=== PATIENT | female | born 1985 | race Caucasian/White ===

== ENCOUNTER 2018-12-12 15:06 | Inpatient (IN) | payer BC ==
[~2018-12-12] VITALS: Ht 167.6 cm; Wt 54.1 kg
--- NOTE | 2018-12-12 15:30 | NUR ---
ED Nurse Note: Pt came in from home due to bilateral forearm redness, edema, dried discharge from 2 openning spots (1 on L arm - white pus noted, 1 on R arm - clear discharge noted). Pt noticed symptoms since yesterday after using IV meth yesterday morning. Pain 10/10 at this time. Pt is not sure if she is up-to-date with Tetanus shot. HR >110 at this time, Oral temp 100.6F upon arrival, ERMD made aware. AOOx4, other vital signs stable. Will cont to monitor.
--- NOTE | 2018-12-12 15:31 | NUR ---
ED Nurse Note: Foul odor noted.
[2018-12-12] MEDS ORDERED: Morphine Sulfate 4mg/ml Inj (IV USE ONLY) IVP ONE (15:45)
[2018-12-12] MEDS ORDERED: Neosporin Oint Ud Pkt TOPIC ONE (15:45)
[2018-12-12] MEDS ORDERED: Tetanus/Diptheria/Pertussis IM ONE (15:45)
[2018-12-12] MEDS ORDERED: Piperacillin/Tazobactam 3.375 GM in NS 110 ML IVPB ONE (15:45)
[2018-12-12] MEDS ORDERED: Vancomycin 1 GM in NS 275 ML IV ONE (15:45)
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
[2018-12-12 15:50] VITALS: BP 116/60
[2018-12-12 15:54] LABS: HEMATOCRIT 36.8 % (37.0-47.0); HEMOGLOBIN 12.3 G/DL (12.0-16.0); MEAN CORPUSCULAR VOLUME 83 FL (80-99); PLATELET COUNT 335 K/UL (150-450); RED BLOOD COUNT 4.41 M/UL (4.20-5.40); RED CELL DISTRIBUTION WIDTH 12.1 % (11.6-14.8)
[2018-12-12 15:58] LABS: WHITE BLOOD COUNT 23.9 K/UL (4.8-10.8)
[2018-12-12 16:09] LABS: ANION GAP 9 mmol/L (5-15); BLOOD UREA NITROGEN 11 mg/dL (7-18); CALCIUM 8.3 MG/DL (8.5-10.1); CARBON DIOXIDE 25 MMOL/L (21-32); CHLORIDE 100 MMOL/L (98-107); CREATININE 0.9 MG/DL (0.55-1.30); INR 1.2 (0.9-1.1); POTASSIUM 3.6 MMOL/L (3.5-5.1); SODIUM 134 MMOL/L (136-145)
[2018-12-12] MEDS ORDERED: NKM (16:16)
[2018-12-12 16:23] LABS: ALANINE AMINOTRANSFERASE 36 U/L (12-78); ALBUMIN 2.7 G/DL (3.4-5.0); ALBUMIN/GLOBULIN RATIO 0.8 (1.0-2.7); ALKALINE PHOSPHATASE 64 U/L (46-116); ASPARTATE AMINO TRANSFERASE 25 U/L (15-37); BILIRUBIN,TOTAL 0.7 MG/DL (0.2-1.0); CKMB 1.6 NG/ML (0.0-3.6); CREATINE KINASE 116 U/L (26-308); PHOSPHORUS 2.5 MG/DL (2.5-4.9)
--- NOTE | 2018-12-12 16:26 | NUR ---
ED Nurse Note: Pt stated pain is 6/10 at this time, tolerated well with medications, no adverse reactions noted or reported.
--- NOTE | 2018-12-12 16:47 | NUR ---
ED Nurse Note: RN was instructed to draw 2nd Lactic Acid after order of NS 1L 800ml/hour. Will carry out order as instructed.
--- NOTE | 2018-12-12 16:56 | NUR ---
ED Nurse Note: Independence and juice given at bedside. Dr Peña is ok with patient eat/drink.
--- NOTE | 2018-12-12 17:05 | NUR ---
ED Nurse Note: Mother - Unique faustin contact information: [phone]
--- NOTE | 2018-12-12 17:10 | NUR ---
ED Nurse Note: Oral temp 99.5F at this time, HR 97. Pt tolerated 100% sandwich and juice. No sign of acute distress.
[2018-12-12 17:34] VITALS: BP 114/42
--- NOTE | 2018-12-12 17:46 | NUR ---
ED Nurse Note: Report given to ROM Sorenson at 3 [facility]. Pt to be transferred to room [facility] on [facility] per protocol. All belongings go with pt to room.
[2018-12-12] MEDS ORDERED: Milk of Magnesia 30ml Ud ORAL PRN (18:00)
[2018-12-12] MEDS ORDERED: LORazepam 1mg tab ORAL PRN (18:00)
[2018-12-12 18:24] VITALS: BP 97/54
--- NOTE | 2018-12-12 18:25 | NUR ---
NURSE NOTES: RECEIVED PATIENT A/A/OX4, ABLE TO MAKE THINGS KNOWN. V/S TAKEN AND RECORDED. PERSONAL BELONGINGS REVIEWED AND NOTED. KEPT BILATERAL ARM ELEVATED WITH PILLOWS. WARM TO TOUCH AND SWOLLEN. OPEN WOUND COVERED WITH OPTIFOAM. EATING DINNER WE SPEAK. NO ACUTE RESP DISTRESS NOTED. KEPT BED IN THE LOWEST POSITION. SIDERAILS ARE UP X3. BED ALARM ON AND LOCKED @ ALL TIMES. WILL CONT TO MONITOR.
--- NOTE | 2018-12-12 19:00 | NUR ---
NURSE NOTES: DARIANAD present from [facility]. TATIANA #[id number]; CHRISTINE #[id number] UNIT. GATHERED INFO ABOUT 'S NAME MEDICAL RECORD # DX AND ROOM NUMBER. JYOTSNA GUAN MADE AWARE.
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
--- NOTE | 2018-12-12 19:13 | NUR ---
HAND-OFF: Report given to
[2018-12-12 20:00] VITALS: BP 139/74
[2018-12-12] MEDS: Piperacillin/Tazobactam 3.375 GM in NS 110 ML IVPB SCH (21:11)
[2018-12-12] MEDS ORDERED: Mylanta II UD 30ml ORAL PRN (22:00)
[2018-12-13] VITALS: BP 102/64
[2018-12-13 04:00] VITALS: BP 124/77
[2018-12-13] MEDS: Piperacillin/Tazobactam 3.375 GM in NS 110 ML IVPB SCH ×3 (06:27→22:10)
--- NOTE | 2018-12-13 07:30 | NUR ---
NURSE NOTES: Received report from ROM Dunn. Rounding done with outgoing nurse. Pt is asleep. Rt AC IV access is patent. TabletKiosksyn is running at this time. Bed in lowest position, call light within reach. Will continue to monitor.
[2018-12-13 08:00] VITALS: BP 135/69
--- NOTE | 2018-12-13 11:05 | NUR ---
*-* NO INSURANCE INFORMATION IN THE BAR UNABLE TO SEND CLINICALS AND REVIEWS *-*
--- NOTE | 2018-12-13 11:30 | NUR ---
NURSE NOTES: Dr. Ibarra called the unit and gave the update for pt including Mg 1.4. said he will come to see pt. No new order.
[2018-12-13 12:00] VITALS: BP 144/78
--- NOTE | 2018-12-13 14:32 | NUR ---
[employer] Initial Review 32 Y/O Female walked in to ED CC: Skin Rash/Abscess after using Meth SI: Cellulitis BP:124/79 HR:125 RR:18 02 Sat:100% on RA T:100.6 WBC:23.9 ESR:32 Magnesium:1.4 IS: Vanco IVx1 Zosyn IVx1 Morphine IVx1 Zofran IVx1 TDAP IMx1 Neosporin Topicalx1 NS Bolusx1 Patient admitted to M/S 12/12/18 @ 1804 M/S Status DCP: Patient to be discharged home once medically stable
[2018-12-13 16:00] VITALS: BP 129/61
--- NOTE | 2018-12-13 16:05 | Diagnostic Imaging Report ---
Indication: Chest pain Technique: One view of the chest Comparison: none Findings: Lungs and pleural spaces are clear. Heart size is normal. Impression: No acute process
--- NOTE | 2018-12-13 16:05 | Diagnostic Imaging Report ---
Clinical Indication:Right wrist pain Technique: 3 views of the right wrist Comparison: None Findings: No acute fractures. No dislocations. The joint spaces are preserved Impression: Negative
--- NOTE | 2018-12-13 17:50 | NUR ---
NURSE NOTES: Dr. Ibarra came to see pt. Dr. Ibarra was notified regarding Mg 1.4. No new order.
--- NOTE | 2018-12-13 19:08 | NUR ---
HAND-OFF: Report given to ROM Dunn. Pt is stable.
--- NOTE | 2018-12-13 19:10 | NUR ---
NURSE NOTES: Report taken from ROM Montelongo. Patient is awake and seated in bed, A&Ox4. No signs of distress on room air. Having pain through bilateral UE, central to wound sites, 08/16. Sites covered with island dressings, intact, change PRN. IV site c/d/i and patent, no fluids running per MD. Bed in lowest position, call light within reach.
[2018-12-13 20:00] VITALS: BP 147/87
[2018-12-13] MEDS: Venlafaxine XR 75mg cap ORAL SCH (20:04)
[2018-12-13] MEDS ORDERED: Vancomycin 1.25gm/NS Premix IVPB ONE (20:30)
[2018-12-13] MEDS: QUEtiapine 200mg tab ORAL SCH (21:05)
[2018-12-14 04:00] VITALS: BP 140/84
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
[2018-12-14] MEDS: Piperacillin/Tazobactam 3.375 GM in NS 110 ML IVPB SCH (05:50)
--- NOTE | 2018-12-14 07:22 | NUR ---
HAND-OFF: Report given to ROM Jesus. Patient is awake and stable.
--- NOTE | 2018-12-14 07:58 | NUR ---
NURSE NOTES: Upon rounds pt IV site extremely swollen. Difficult to differentiate where swelling from cellulitis begins , and swelling from infiltrated IV. Will follow up with Dr Ibarra. Pt is slightly sedated, closes eyes when she speaks and her head sways. Pt rubbing on her lips stating her mouth is dry. Per report of charge nurse mental baseline has improved from yesterday. Current plan will be followed to include follw with Dr Ibarra for possible change of route of antibiotics.
--- NOTE | 2018-12-14 08:46 | NUR ---
NURSE NOTES: Dr Ibarra here to see pt both arms are swollen pt stated " They may be nothing in my arms" gave orders for picc line, for prolonged IV use.
--- NOTE | 2018-12-14 08:49 | General Progress Note ---
Assessment/Plan Problem List: (1) Amphetamine abuse ICD Codes: F15.10 - Other stimulant abuse, uncomplicated SNOMED: 71140742 (2) Cellulitis ICD Codes: L03.90 - Cellulitis, unspecified SNOMED: 369466225 Qualifiers: Qualified Codes: L03.119 - Cellulitis of unspecified part of limb (3) Staph aureus infection ICD Codes: A49.01 - Methicillin susceptible Staphylococcus aureus infection, unspecified site SNOMED: 324538617 (4) Depression ICD Codes: F32.9 - Major depressive disorder, single episode, unspecified SNOMED: 81019593 Assessment/Plan: picc, vanco, SW eval for drug rehab, psych eval Subjective Constitutional: Reports: weakness HEENT: Reports: no symptoms Cardiovascular: Reports: no symptoms Respiratory: Reports: no symptoms Gastrointestinal/Abdominal: Reports: no symptoms Genitourinary: Reports: no symptoms Neurologic/Psychiatric: Reports: no symptoms Endocrine: Reports: no symptoms Hematologic/Lymphatic: Reports: no symptoms Allergies: Coded Allergies: No Known Allergies (Unverified , 12/12/18) Subjective arm pain and swell Objective Last 24 Hour Vital Signs Date Time Temp Pulse Resp B/P (MAP) Pulse Ox O2 Delivery O2 Flow Rate FiO2 12/14/18 04:00 98.4 87 18 140/84 (102) 97 12/13/18 21:00 Room Air 12/13/18 20:00 97.9 89 18 147/87 (107) 99 12/13/18 16:00 97.4 92 20 129/61 (83) 95 12/13/18 12:00 98.0 89 18 144/78 (100) 99 12/13/18 09:00 Room Air Intake and Output 12/13/18 12/14/18 19:00 07:00 Intake Total 220.0 ml 750 ml Balance 220.0 ml 750 ml Intake Oral 750 ml IV Total 220.0 ml # Voids 2 2 Height (Feet): 5 Height (Inches): 6.00 Weight (Pounds): 130 General Appearance: no apparent distress, alert EENT: normal ENT inspection Neck: normal alignment Cardiovascular: normal rate Respiratory/Chest: lungs clear Abdomen: non tender, soft Edema: mild edema Neurologic: vice president supply chain II-XII grossly normal Skin: other - abscesses and cellulitis both arms Yohannes Ibarra MD Dec 14, 2018 08:49
[2018-12-14] MEDS ORDERED: Heparin1,000 units/500ml Premix(Conc:2 units/ml) IV PRN (09:00)
[2018-12-14] MEDS ORDERED: Lidocaine 1% Plain 30 ml INJ PRN (09:00)
[2018-12-14] MEDS: Vancomycin 1.25gm/NS Premix IVPB SCH ×2 (09:00→21:00)
[2018-12-14] MEDS: Venlafaxine XR 75mg cap ORAL SCH (09:34)
[2018-12-14] MEDS: FLUoxetine 10mg cap ORAL SCH (09:35)
[2018-12-14] MEDS ORDERED: NS 275ml ONE (10:27)
[2018-12-14] MEDS ORDERED: Tubing IV Secondary IV ONE (10:27)
--- NOTE | 2018-12-14 11:05 | NUR ---
NURSE NOTES: Pt does not have working line, awaiting picc line insertion
--- NOTE | 2018-12-14 11:40 | NUR ---
NURSE NOTES: Unable to give antibiotics which were due. Pt does not have IV acces. Will follow up with pharmacy for change in time for Vancomycin. Here earlier in shift , is aware that pt does not have a line. Lab recently called to report MRSA positive to rt wrist. " Okay she is already on Vancomycin" NNO
[2018-12-14 12:00] VITALS: BP 125/69
--- NOTE | 2018-12-14 12:31 | NUR ---
NURSE NOTES: Pt appears altered Dr lua . Pt has a hx of drug abuse.
--- NOTE | 2018-12-14 13:05 | NUR ---
CASE MANAGEMENT:REVIEW 12/14/18 SI: BUE ABSCESSES/CELLULITIS. MRSA INFECTION AMPHETAMINE ABUSE 98.4 87 18 140/84 97% ON RA IS: IV VANCOMYCIN Q12 PROZAC PO QD SEROQUEL PO QHS : MED/SURG STATUS 3 EAST PLAN: INPATIENT DRUG REHAB
--- NOTE | 2018-12-14 14:14 | NUR ---
*-* INSURANCE *-* ALL CLINICALS AND REVIEWS HAVE BEEN FAXED TO: [facility] REF#[id number] NO CM ASSIGNED YET #[phone] FAX#[phone] REVIEWS/CLINICALS
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
[2018-12-14 16:00] VITALS: BP 141/75
--- NOTE | 2018-12-14 16:00 | NUR ---
NURSE NOTES: Upon this writing radiology did not metal pickling equipment operator pt for picc line placement . Registered Pharmacist attempted to insert a line but refused use of tourniquet, greeting card writer obtained backflow but was unable to advance catheter. 2 attempts made. . Per instruction of pt " I know my veins dont go deep" Catheter retracted as requested site began to bleed. " I guess you had it"
--- NOTE | 2018-12-14 19:20 | NUR ---
NURSE NOTES: Report taken from ROM Jesus. Patient is asleep and in bed, arousable by name and touch. Patient seems sedated, day shift endorsed finding used drugs in patient belongings. A&Ox4. No signs of distress on room air. No IV MD yamile aware, order for PICC placed. Biateral UE swollen and warm, open wounds on lt wrist and rt FA, change dressing PRN. Wound culture complete, patient has MRSA, will transfer patient to , patient aware. Bed in lowest position, call light within reach.
--- NOTE | 2018-12-14 19:23 | NUR ---
HAND-OFF: Report given to Oncoming nurse made aware, that picc line was not inserted, pt requested that iv attempted to be inserted without a turniquette. Endorsed to oncoming nurse to attempt and call Dr Ibarra to inform him that picc line was not inserted.
[2018-12-14 20:00] VITALS: BP 144/77
[2018-12-14] MEDS ORDERED: Dyna-Hex 2% Top Sol 2oz TOPIC SCH (20:00)
--- NOTE | 2018-12-14 20:00 | NUR ---
NURSE NOTES: No IV access. Order for PICC placed prior to shift. Radiology did not come and put line in patient. MD made aware (Dr. Whittington), no further antibiotic orders placed until PICC inserted.
[2018-12-14] MEDS: QUEtiapine 200mg tab ORAL SCH ×2 (21:45→22:20)
--- NOTE | 2018-12-15 01:24 | NUR ---
NURSE NOTES: RECEIVED PT FROM ROM ESQUEDA. PT IS AWAKE, AAOX4, ON ROOM AIR, NO ACUTE DISTRESS NOTED. WOUND DRESSINGS ON BILATERAL ARMS ARE INTACT AND DRY. PT HAS NO IV ACCESS, MD AWARE. BED IS LOCKED AND LOW, BED ALARMS ACTIVE, SIDE RAILS UP X2 AND CALL LIGHT IS WITHIN REACH. WILL CONTINUE TO MONITOR.
--- NOTE | 2018-12-15 07:30 | NUR ---
HAND-OFF: Report given to ORM CHICAS.
--- NOTE | 2018-12-15 07:59 | NUR ---
NURSE NOTES: Received pt in bed, AAO x 4. Room air. No c/o of pain/distress. No IV access. Will have PICC line placement today. Side rails x 2. Bed in the lowest and locked. Call light within reach. Will continue to monitor
[2018-12-15 08:00] VITALS: BP 136/97
[2018-12-15] MEDS: Venlafaxine XR 75mg cap ORAL SCH (08:08)
[2018-12-15] MEDS: Vancomycin 1.25gm/NS Premix IVPB SCH (08:08)
[2018-12-15] MEDS: FLUoxetine 10mg cap ORAL SCH (08:08)
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
--- NOTE | 2018-12-15 11:52 | CDS Physician Query ---
Clarification is required for compliance, coding accuracy, and to reflect severity of illness for this patient. Dear Dr. Yohannes Ibarra Date: 12/15/2018 CDS name: Skylar Blanco Clinical Documentation States: ED note:Patient presents with worsening infections in her forearms and hands with swelling. She injects methamphetamine subcutaneously and sometimes IV. Yesterday she felt nauseated and felt fevers and chills...Sepsis Progress note 12/14: Cellulitis...Staph auerus infection...picc,vanco Vitals on admission: Tmax 100.6, IN 125, RR 21, WBC 23.9 A diagnosis of Sepsis was made in the ED note. Upon review, it is difficult to determine whether this diagnosis has been ruled in, ruled out,or is still being worked up. Please indicate below the status of the aforementioned diagnosis. [] Treated and resolve [] Presumed and treated [] Currently under treatment [] Still being worked-up [x] Ruled out Present on Admission: [] Yes [] No [] Clinically Undetermined Physician signature Date Please also document in your Progress Notes and/or Discharge Summary and indicate if the condition was present on admission. MTDD
[2018-12-15 12:00] VITALS: BP 113/56
--- NOTE | 2018-12-15 12:35 | NUR ---
CASE MANAGEMENT:REVIEW 12/15/18 SI: BUE ABSCESSES/CELLULITIS. MRSA INFECTION AMPHETAMINE ABUSE 97.5 70 14 136/97 98% ON RA IS: IV VANCOMYCIN Q12 PROZAC PO QD SEROQUEL PO QHS EFFEXOR PO QD : MED/SURG STATUS 3 EAST DCP: HOME WITH MOTHER PLAN: INPATIENT DRUG REHAB
--- NOTE | 2018-12-15 13:59 | NUR ---
NURSE NOTES: Pt is off unit for PICC line placement
--- NOTE | 2018-12-15 14:52 | NUR ---
NURSE NOTES: Pt is back from PICC line placement. Double-lumen PICC line on R UA noted.
[2018-12-15 15:19] LABS: EOSINOPHILS % (AUTO) 1.1 % (0.0-3.0); HEMATOCRIT 35.2 % (37.0-47.0); HEMOGLOBIN 11.4 G/DL (12.0-16.0); LYMPHOCYTES % (AUTO) 11.1 % (20.0-45.0); MEAN CORPUSCULAR VOLUME 85 FL (80-99); MONOCYTES % (AUTO) 8.6 % (1.0-10.0); NEUTROPHILS % (AUTO) 78.3 % (45.0-75.0); PLATELET COUNT 439 K/UL (150-450); RED BLOOD COUNT 4.16 M/UL (4.20-5.40); RED CELL DISTRIBUTION WIDTH 12.7 % (11.6-14.8)
[2018-12-15 15:29] LABS: ANION GAP 6 mmol/L (5-15); BLOOD UREA NITROGEN 5 mg/dL (7-18); CALCIUM 8.7 MG/DL (8.5-10.1); CARBON DIOXIDE 26 MMOL/L (21-32); CHLORIDE 103 MMOL/L (98-107); CREATININE 0.6 MG/DL (0.55-1.30); POTASSIUM 4.2 MMOL/L (3.5-5.1); SODIUM 135 MMOL/L (136-145)
[2018-12-15 16:00] VITALS: BP 123/63
--- NOTE | 2018-12-15 16:24 | NUR ---
*-* INSURANCE *-* ALL CLINICALS AND REVIEWS HAVE BEEN FAXED TO: [facility] REF#[id number] NO CM ASSIGNED YET #[phone] FAX#[phone] REVIEWS/CLINICALS
--- NOTE | 2018-12-15 16:45 | Diagnostic Imaging Report ---
Indication: terminal worker venous access Findings: After the indications, procedure, risks, complications, and alternatives of the procedure were explained, written informed consent was obtained. The right upper extremity was prepped with alcohol. All elements of maximal sterile barrier technique were followed including usage of a cap, mask, sterile gown, sterile gloves, hand hygiene and a large sterile sheet. Sonographic evaluation of the upper extremity was performed demonstrating a patent and compressible basilic vein. Access was obtained under real-time ultrasound guidance (with utilization of sterile gel and sterile probe cover) and digital image was saved and archived. An .018 wire was introduced. Needle exchanged for a 5 Mongolian peel-away sheath. Measurements were obtained. A 5 Mongolian dual-lumen Power PICC line catheter was cut to 40 cm and introduced over the wire. Peel-away sheath and wire were removed.Catheter was secured to the skin using 2-0 Prolene suture. Both ports aspirate and flush easily. A single fluoroscopic image shows the distal tip in the superior vena cava. Total fluoroscopic time was 5.8 seconds. Impression: Successful placement of an upper extremity PICC line catheter
[2018-12-15] MEDS ORDERED: Vancomycin 1.25gm/NS Premix IVPB SCH (18:00)
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
--- NOTE | 2018-12-15 19:23 | NUR ---
HAND-OFF: Report given to ROM Parisi.
[2018-12-15] MEDS ORDERED: Heparin1,000 units/500ml Premix(Conc:2 units/ml) ONE (19:49)
[2018-12-15] MEDS ORDERED: Lidocaine 1% Plain 30 ml INJ ONE (19:49)
--- NOTE | 2018-12-15 19:55 | NUR ---
NURSE NOTES: PICC LINE WAS REMOVED PER PROTOCOL. PT LEFT WITH BELONGINGS.
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
--- NOTE | 2018-12-16 21:03 | Cardiology Report ---
APPROVED REPORT EXAM: Two-dimensional and M-mode echocardiogram with Doppler and color Doppler. INDICATION Tachy M-Mode DIMENSIONS IVSd0.8 (0.7-1.1cm)Left Atrium (MM)3.1 (1.6-4.0cm) LVDd4.3 (3.5-5.6cm)Aortic Root2.3 (2.0-3.7cm) PWd0.7 (0.7-1.1cm)Aortic Cusp Exc.1.9 (1.5-2.0cm) LVDs2.4 (2.5-4.0cm) PWs1.2 cm Normal left ventricular chamber size, systolic function and wall motion. Left ventricular ejection fraction estimated to be 65 %. No evidence of pericardial effusion. Anterior Echo-free space, may be due to pericardial fat or effusion. All other cardiac chamber sizes are within normal limits. Mild focal aortic valve sclerosis with adequate cusp excursion. Mildly thickened mitral valve leaflets with normal excursion. Mild mitral annulus and aortic root calcification. Pulmonic valve not well visualized. IVC at normal size with physiologic collapse. A color flow and spectral Doppler study was performed and revealed Trace mitral regurgitation. Mitral inflow indicates normal left ventricular diastolic function. Trace to mild tricuspid regurgitation. Tricuspid systolic velocities suggests peak right ventricular systolic pressure of 22 mmHg
--- NOTE | 2018-12-16 21:15 | Cardiology Report ---
APPROVED REPORT EKG Measurement Heart [id number] Sinus tachycardia Septal infarct, age undetermined Abnormal ECG
--- NOTE | 2018-12-17 15:59 | NUR ---
*-* INSURANCE *-* DISCHARGE SUMMARY HAS BEEN FAXED TO: [facility] REF#[id number] NO CM ASSIGNED YET #[phone] FAX#[phone] REVIEWS/CLINICALS
== END 2018-12-15 19:50 | disposition left against medical advice (07) | DRG 603 ==
LOC: EMR 15:35 → 3E 15:52 → EDBEDREQ 17:15 → 4E 12-14 23:33
PROC: 02HV33Z Insertion of Infusion Device into Superior Vena Cava, Percutaneous Approach (ICD-10-PCS; principal; 2018-12-15)
DX: L03.114 Cellulitis of left upper limb (principal); T76.11XA Adult physical abuse, suspected, initial encounter; L03.113 Cellulitis of right upper limb; S60.211A Contusion of right wrist, initial encounter; F15.10 Other stimulant abuse, uncomplicated; B95.61 Methicillin susceptible Staphylococcus aureus infection as the cause of diseases classified elsewhere; B95.62 Methicillin resistant Staphylococcus aureus infection as the cause of diseases classified elsewhere; F32.9 Major depressive disorder, single episode, unspecified
CPT/HCPCS: 36415; 36569; 71045; 76937; 80048; 80053; 80329; 82550; 82553; 83605; 83690; 83735; 83880; 84100; 84484; 85007; 85025; 85610; 85651; 85730; 86140; 86703; 86803; 87040; 87070; 87181; 87205; 90471; 90715; 93005; 93306; 96361; 96365; 96367; 96375; 99285; J2405